=== PATIENT | male | born 1950 | race Caucasian/White ===

== ENCOUNTER 2016-10-03 10:26 | Outpatient (CLI) | payer OTHER ==
[~2016-10-03 10:26] MED LIST: FLONASE AL50 MCG/ACT IN
--- NOTE | 2016-10-03 11:00 | DIAGNOSTIC IMAGING REPORT ---
PROCEDURE: DEXA BONE DENSITY STUDY CLINICAL INDICATION: WEIGHT LOSS COMPARISON: None. FINDINGS: LUMBAR SPINE: Bone mineral density 0.802 g/cm2, T score -2.6 osteoporosis LEFT HIP: Bone mineral density 0.754 g/cm2, T score -1.8 osteopenia LEFT FEMORAL NECK: Bone mineral density 0.604 g/cm2, T score -2.4 osteopenia FRACTURE RISK CALCULATION ( when applicable): 10-year fracture risk of a major osteoporotic fracture and of a hip fracture not reported because some T-score at or below -2.5 (T score greater or equal to -1.0 to: NORMAL) (T score from -1.1 to -2.4: OSTEOPENIA) (T score ess than or equal to -2.5: OSTEOPOROSIS) IMPRESSION: 1. Lumbar spine osteoporosis, osteopenia hip and femoral neck
== END 2016-10-03 23:00 ==
LOC: XR SRH 10:26
DX: R63.4 Abnormal weight loss (principal); M81.0 Age-related osteoporosis without current pathological fracture; M85.88 Other specified disorders of bone density and structure, other site